=== PATIENT | male | born 1970 | race Caucasian/White ===

== ENCOUNTER 2017-12-19 18:13 | Emergency (ER) | payer BC ==
[~2017-12-19 18:13] MED LIST: Sodium Chloride 0.9% 1,000 ML BAG ONE; Sodium Chloride 0.9% 100 ML BAG ONE; Sodium Chloride Irrig Solution 250 ML BOT ONE
[2017-12-19] MEDS ORDERED: Adacel (T-DAP) 0.5 ML VIAL ONE (18:45)
[2017-12-19] MEDS ORDERED: Promethazine HCl 25 MG/ML VIAL ONE (18:45)
[2017-12-19] MEDS ORDERED: Fentanyl 100 MCG/2 ML VIAL ONE (18:45)
[2017-12-19] MEDS ORDERED: Lidocaine 1% w/Epinephrine 1:100K 30 ML VIAL ONE (18:52)
--- NOTE | 2017-12-19 19:55 | CT ---
CT OF FACIAL BONES PERFORMED WITHOUT CONTRAST ENHANCEMENT: 12/19/17 HISTORY: Facial trauma. The nasal bone and zygomatic arches appear intact. No air fluid levels seen within the sinuses. There is no evidence for orbital or maxillary fracture. There is some mucosal change within the maxillary sinuses. There is also some minimal ethmoid air deyvi l mucosal change. The visualized portion of the mandible appears intact. The right condyle is not seen on these images due to patient rotation. IMPRESSION: No CT evidence of fracture of the facial bones. Incomplete visualization of the right condyle but no fracture is seen. POS: RITO
--- NOTE | 2017-12-19 21:05 | CT ---
CT OF CHEST PERFORMED WITHOUT CONTRAST ENHANCEMENT: 12/19/17 HISTORY: Chest injury. There are subsegmental atelectatic changes in both lung bases. No pneumothorax or pleural effusions a re identified. No rib fractures. Mediastinal structures appear unremarkable. Aorta is normal in caliber. Small hiatal hernia is noted. The visualized liver and spleen are unremarkable. The gallbladder has been removed. IMPRESSION: Subsegmental atelectatic changes in the lung bases. POS: RITO
== END 2017-12-19 21:10 | disposition home or self-care (01) ==
LOC: MADERS 18:13
DX: S01.81XA Laceration without foreign body of other part of head, initial encounter (principal); I10 Essential (primary) hypertension; W05.0XXA Fall from non-moving wheelchair, initial encounter
CPT/HCPCS: 12002; 70486; 71250; 90471; 90715; 96361; 96374; 96375; J2001; J2550; J3010; J7050

== ENCOUNTER 2018-12-15 20:31 | Emergency (ER) | payer BC ==
[2018-12-15] MEDS ORDERED: Sodium Chloride 0.9% 1,000 ML ONE (21:05)
[2018-12-15] MEDS ORDERED: HYDROmorphone 0.5 MG/0.5 ML SYRINGE ONE (21:05)
[2018-12-15] MEDS ORDERED: Ondansetron PF 4 MG/2 ML Vial ONE (21:12)
[2018-12-15] MEDS ORDERED: Fentanyl 100 MCG/2 ML VIAL ONE (21:12)
[2018-12-15 21:25] LABS: #Basophils 0.1 thou/uL (0.0-0.2); #Eosinphils 0.2 thou/uL (0.0-0.7); #Lymphocytes 1.9 thou/uL (1.20-3.40); #Monocytes 0.4 thou/uL (0.11-0.59); #Neutrophils 5.3 thou/uL (1.40-6.50); %Basophils 1.3 % (0.0-1.0); %Eosinophils 2.5 % (0.0-10.0); %Lymphocytes 24.3 % (21.0-51.0); %Monocytes 5.3 % (0.0-10.0); %Neutrophils 66.6 % (42.0-75.0); Hemoglobin 13.5 g/dL (14.0-18.0); Mean Corpuscular HGB CONC 34.2 g/dL (32.0-36.0); Mean Corpuscular Hemoglobin 28.4 pg (27.0-31.0); Mean Corpuscular Volume 83.2 fL (78.0-98.0); Platelet Count 292 thou/uL (130-400); RBC Distribution Width 11.5 % (11.5-14.5); Red Blood Cell (RBC) Count 4.75 mill/uL (4.70-6.10); White Blood Cell (WBC) Count 7.9 thou/uL (4.8-10.8)
[2018-12-15 21:38] LABS: Bilirubin Negative (Negative); Blood, Urine Negative (Negative); Clarity Clear (Clear); Glucose, Urine (Dipstick) Negative (Negative); Leukocyte Negative (Negative); Nitrite Negative (Negative); Protein, Urine (Dipstick) Negative (Neg-Trace); Urobilinogen 0.2 mg/dL (Less than 2)
--- NOTE | 2018-12-15 21:49 | CT ---
CT ABDOMEN AND PELVIS WITHOUT CONTRAST: 12/15/18 INDICATIONS: Right flank pain. Lung bases clear. Liver, spleen, pancreas unremarkable. Post cholecystectomy change. Malrotation right kidney. There is moderate right hydronephrosis. There is dilatation of the right ureter. An obstructing calculus in t he distal right ureter which measures approximately 4 mm. Inflammatory stranding surrounds the right ureter. There are at least three nonobstructing calculi in the upper collecting structures of the right kidne y with the largest measuring approximately 3 x 5 mm. No calculi is seen in the left kidney. Bowel loops unremarkable. Clip at the cecum may indicate prior appendectomy. No other acute process. IMPRESSION: Obstructing calculus distal right ureter. Nonobstructing calculi in the upper collecting structures o f the right kidney. POS: OFF
[2018-12-15 21:56] LABS: ALT (SGPT) 18 U/L (8-55); AST (SGOT) 18 U/L (5-34); Alkaline Phosphatase 48 U/L (40-150); Anion Gap 19 mmol/L (10-20); BUN (Urea Nitrogen) 25 mg/dL (8.9-20.6); Bilirubin, Total 0.3 mg/dL (0.2-1.2); Calc. Creatinine Clearance 0 mL/min (70-130); Calcium 9.3 mg/dL (7.8-10.44); Carbon Dioxide 24 mmol/L (22-29); Chloride 103 mmol/L (98-107); Estimated GFR-MDRD 75; Glucose 125 mg/dL (70-105); Lipase 29 U/L (8-78); Potassium 3.4 mmol/L (3.5-5.1); Sodium 143 mmol/L (136-145)
[2018-12-15] MEDS ORDERED: Ketorolac Tromethamine 30 MG/ML VIAL ONE (22:11)
== END 2018-12-15 22:52 | disposition home or self-care (01) ==
LOC: MADERS 20:31
DX: N13.2 Hydronephrosis with renal and ureteral calculous obstruction (principal); I10 Essential (primary) hypertension; Z79.899 Other long term (current) drug therapy
CPT/HCPCS: 36415; 74176; 80053; 81003; 83690; 85025; 96361; 96374; 96375; J1170; J1885; J2405; J3010; J7050